=== PATIENT | male | born 1970 | race Caucasian/White ===

== ENCOUNTER → 2018-06-15 | Outpatient (CLI) | payer OTHER ==
[~2018-06-15] MED LIST: AMOX-362 PO; CHOL200021 PO; CHOL500016 PO; CYAN500L6 PO; MAGN250T34 PO; MULT-820 PO; MULT-885 PO; VITA100T4 PO
--- NOTE | 2018-06-15 20:59 | RADIOLOGY IMAGING REPORT ---
FACILITY: [facility] [place] PATIENT NAME: Miguel A Smith : 1970 MR: [id number] V: [id number] EXAM DATE: ORDERING PHYSICIAN: PEPE BARRAGAN TECHNOLOGIST: Location: [facility] Patient: Miguel A Smith : 1970 Visit/Account:[id number] Date of Sevice: 06/15/2018 HUMERUS BILATERAL 2 VIEWS INDICATION: Bilateral arm pain. COMPARISON: None available. FINDINGS: Left humerus: 2 views. No evidence of acute fracture, dislocation, or radiopaque foreign body. Normal mineralization, joint spaces, and alignment. Right humerus: 2 views. No evidence of acute fracture, dislocation, or radiopaque foreign body. Mariela l mineralization, joint spaces, and alignment. IMPRESSION: Negative bilateral humerus radiographs. Report Dictated By: Maximo Ríos MD at 06/15/2018 8:54 PM Report E-Signed By: Maximo Ríos MD at 06/15/2018 8:56 PM WSN:[id number]
== END ==
LOC: RAD 16:58
PROVIDERS: ATTEND Family Medicine
DX: M79.622 Pain in left upper arm (principal); M79.621 Pain in right upper arm